=== PATIENT | male | born 1965 | race Asian ===

== ENCOUNTER → 2019-08-06 | Outpatient (CLI) | payer OTHER ==
[~2019-08-06] MED LIST: ESOM40CA PO; SERT25TA PO
[2019-08-06 16:21] LABS: MICROSCOPIC AUTO
[2019-08-06 16:21] LABS: BASOPHILS # (AUTO) 0.04 x10^3/uL (0-0.1); BASOPHILS % (AUTO) 1 % (0-1); EOSINOPHILS # (AUTO) 0.33 x10^3/uL (0-0.4); EOSINOPHILS % (AUTO) 5 % (1-7); LYMPHOCYTES # (AUTO) 1.89 x10^3/uL (1-3.4); LYMPHOCYTES % (AUTO) 29 % (22-44); MD NO; MEAN CORPUSCULAR HEMOGLOBIN 30.8 pg (27.5-34.5); MEAN CORPUSCULAR HGB CONC 33.7 g/dL (33.2-36.2); MEAN CORPUSCULAR VOLUME 91.5 fL (81-97); MEAN PLATELET VOLUME 7.9 fL (7.4-10.4); MONOCYTES # (AUTO) 0.45 x10^3/uL (0.2-0.8); MONOCYTES % (AUTO) 7 % (2-9); NEUTROPHILS # (AUTO) 3.71 x10^3/uL (1.8-6.8); NEUTROPHILS % (AUTO) 58 % (42-75); PLATELET COUNT 241 x10^3/uL (130-400); RED BLOOD COUNT 5.02 x10^6/uL (4.38-5.82)
[2019-08-06 16:27] LABS: CULTURE INDICATED? NO
[2019-08-06 16:28] LABS: INTERNATIONAL NORMALIZED RATIO 0.94 (0.93-1.1)
[2019-08-06 16:29] LABS: ANION GAP 6 mmol/L (5-15); CALCIUM 8.8 mg/dL (8.5-10.1); CHLORIDE 107 mmol/L (98-107); CREATININE 0.85 mg/dL (0.7-1.3)
== END | disposition home or self-care (01) ==
LOC: STAR 15:12
PROVIDERS: ATTEND Neurological Surgery
DX: Z01.818 Encounter for other preprocedural examination (principal); M50.30 Other cervical disc degeneration, unspecified cervical region
CPT/HCPCS: 36415; 71046; 80048; 81001; 85025; 85610; 85730; 93005

== ENCOUNTER 2019-08-21 05:20 | Observation (INO) | payer OTHER ==
[~2019-08-21] VITALS: Ht 167.6 cm; Wt 95.7 kg
[2019-08-21 06:18] VITALS: BP 130/90
[2019-08-21] MEDS ORDERED: LOSA50TA14 PO (06:22)
[2019-08-21] MEDS ORDERED: FLUT9.9S NAS (06:22)
[2019-08-21] MEDS ORDERED: LACTATED RINGERS 1,000 ML IV SCH (06:23)
[2019-08-21] MEDS ORDERED: LIDOCAINE-MPF 1%, 2ML ONE (06:25)
[2019-08-21] MEDS ORDERED: BACITRACIN 50,000 UNIT ONE (06:48)
[2019-08-21] MEDS ORDERED: EPINEPHRINE 1 MG/ML, 1ML ONE (06:48)
[2019-08-21] MEDS ORDERED: BUPIVACAINE/PF 0.5% ONE (06:48)
[2019-08-21] MEDS ORDERED: GABAPENTIN 300 MG CAPSULE PO ONE (07:00)
[2019-08-21] MEDS ORDERED: FAMOTIDINE 20 MG TABLET PO ONE (07:00)
[2019-08-21] MEDS ORDERED: ACETAMINOPHEN 500 MG TABLET PO ONE (07:00)
[2019-08-21] MEDS ORDERED: MIDAZOLAM 1 MG/ML, 2ML ONE (07:01)
[2019-08-21] MEDS ORDERED: FENTANYL PF 250 MCG/5ML ONE (07:02)
[2019-08-21] MEDS ORDERED: PROPOFOL 150 ML ONE (07:03)
[2019-08-21] MEDS ORDERED: ROCURONIUM 10MG/ML,5ML ONE (07:05)
[2019-08-21] MEDS ORDERED: PROPOFOL 10 MG/ML, 20ML ONE (07:06)
[2019-08-21] MEDS ORDERED: DEXAMETHASONE 4 MG/ML, 1ML ONE ×3 (07:33→07:35)
[2019-08-21] MEDS ORDERED: CEFAZOLIN 1,000 MG ONE ×2 (07:35)
[2019-08-21] MEDS ORDERED: LABETALOL 5MG/ML, 20ML IV PRN (08:00)
[2019-08-21] MEDS ORDERED: HYDROmorphone 2 MG/ML, 1ML IVPush PRN (08:00)
[2019-08-21] MEDS ORDERED: ONDANSETRON 2MG/ML, 2ML IV PRN (08:00)
[2019-08-21] MEDS ORDERED: hydrALAzine 20 MG/ML, 1ML IV PRN (08:00)
[2019-08-21] MEDS ORDERED: PROMETHAZINE 25 MG/ML, 1ML IV PRN (08:00)
[2019-08-21] MEDS ORDERED: FENTANYL PF 100 MCG/2ML IV PRN (08:00)
[2019-08-21] MEDS ORDERED: OXYcodone 5 MG/5 ML ORAL.SOL UDC PO PRN (08:00)
[2019-08-21] MEDS ORDERED: MEPERIDINE/PF 25MG/ML,1ML IVPush PRN (08:00)
[2019-08-21] MEDS ORDERED: ONDANSETRON 2MG/ML, 2ML ONE (08:50)
[2019-08-21] MEDS ORDERED: SENNA/DOCUSATE TABLET PO PRN (09:30)
[2019-08-21] MEDS ORDERED: METHOCARBAMOL 1,000 MG in DEXTROSE 5% 100 ML IV ONE (09:30)
[2019-08-21] MEDS ORDERED: ONDANSETRON 2MG/ML, 2ML IVPush PRN (09:30)
[2019-08-21] MEDS ORDERED: PROMETHAZINE 25 MG/ML, 1ML IM PRN (09:30)
[2019-08-21] MEDS: NS + 20MEQ KCL 1,000 ML IV SCH (09:30)
[2019-08-21] MEDS ORDERED: MAGNESIUM HYDROXIDE 8%, 30ML UDC PO PRN (09:30)
[2019-08-21] MEDS ORDERED: BISACODYL 10 MG SUPP PR PRN (09:30)
[2019-08-21] MEDS ORDERED: DIPHENHYDRAMINE 50 MG/ML, 1ML IVPush PRN (09:30)
[2019-08-21] MEDS ORDERED: HYDROmorphone 1 MG/ML, 1ML INJ IVPush PRN (09:30)
[2019-08-21] MEDS ORDERED: PHARMACY MAY ADJ FOR RENAL FX MC PRN (09:30)
[2019-08-21] MEDS ORDERED: SUCCINYLCHOLINE 20 MG/ML, 10ML ONE (15:23)
[2019-08-21 19:47] VITALS: BP 123/73
[2019-08-21] MEDS: OXYcodone/APAP 5/325MG TABLET PO PRN ×2 (19:49→20:25)
[2019-08-21] MEDS: CEFAZOLIN PMX 1GM/50ML 50 ML IVPB SCH (20:14)
[2019-08-21] MEDS: SODIUM CHLORIDE FLUSH 10ML SYR IVF SCH (21:00)
[2019-08-21] MEDS: PANTOPROZOLE 40MG TABLET PO SCH (22:19)
[2019-08-22] VITALS: BP 119/70
[2019-08-22] MEDS: OXYcodone/APAP 5/325MG TABLET PO PRN ×3 (00:55→08:45)
[2019-08-22] MEDS: NS + 20MEQ KCL 1,000 ML IV SCH (00:56)
[2019-08-22] MEDS: CEFAZOLIN PMX 1GM/50ML 50 ML IVPB SCH (04:31)
[2019-08-22 04:36] VITALS: BP 119/70
[2019-08-22 08:30] VITALS: BP 132/83
[2019-08-22] MEDS: PANTOPROZOLE 40MG TABLET PO SCH (08:44)
[2019-08-22] MEDS ORDERED: LOSARTAN 50MG TABLET PO SCH (09:00)
[2019-08-22] MEDS: SODIUM CHLORIDE FLUSH 10ML SYR IVF SCH (09:00)
[2019-08-22] MEDS ORDERED: SERTRALINE 50MG TABLET PO SCH (09:00)
[2019-08-23] MEDS ORDERED: METHOCARBAMOL 750 MG TABLET PO SCH (17:30)
== END 2019-08-22 10:55 | disposition home or self-care (01) ==
LOC: OUT 05:20 → ORIP 09:12 → 3WST 18:21 → DCLOUNGE 08-22 10:41
PROVIDERS: ADMIT Neurological Surgery; ATTEND Neurological Surgery
DX: M50.123 Cervical disc disorder at C6-C7 level with radiculopathy (principal); G47.30 Sleep apnea, unspecified; I10 Essential (primary) hypertension; Z79.899 Other long term (current) drug therapy
CPT/HCPCS: 20930; 22551; 22853; 72040; 95938; 95941; 96365; 96366; 97161; 97165; C1713; C1776; G0378; J0171; J0330; J0690; J1100; J1170; J2250; J2405; J2704; J2800; J3010; J3480; J3490; S0020

== ENCOUNTER 2020-03-03 19:19 | Emergency (ER) | payer OTHER ==
[~2020-03-03] VITALS: Ht 167.6 cm; Wt 88.7 kg
[~2020-03-03 19:19] MED LIST changes: +FLUT9.9S NAS; +LOSA50TA14 PO
[2020-03-03] MEDS ORDERED: LABETALOL 5MG/ML, 20ML IVPush STA (19:51)
[2020-03-03] MEDS ORDERED: SODIUM CHLORIDE FLUSH 10ML SYR IVF ONE (20:00)
[2020-03-03] MEDS ORDERED: LABETALOL 5MG/ML, 20ML ONE (20:05)
--- NOTE | 2020-03-03 20:22 | NUR ---
TASK RN: PT MEDICATED PER SEP, NAD, SITTING UP ON GURNEY, APPEARS COMFORTABLE, DENIES ADDITIONAL NEEDS AT THIS TIME, BLOOD SENT TO LAB. WCTM. PRIMARY RN AWARE.
[2020-03-03 20:32] LABS: BASOPHILS % (AUTO) 0 % (0-1); EOSINOPHILS % (AUTO) 0 % (1-7); LYMPHOCYTES # (AUTO) 0.42 x10^3/uL (1-3.4); LYMPHOCYTES % (AUTO) 8 % (22-44); MD NO; MEAN CORPUSCULAR HEMOGLOBIN 30.6 pg (27.5-34.5); MEAN CORPUSCULAR HGB CONC 33.5 g/dL (33.2-36.2); MEAN CORPUSCULAR VOLUME 91.4 fL (81-97); MEAN PLATELET VOLUME 8.1 fL (7.4-10.4); MONOCYTES # (AUTO) 0.01 x10^3/uL (0.2-0.8); MONOCYTES % (AUTO) 0 % (2-9); NEUTROPHILS # (AUTO) 4.55 x10^3/uL (1.8-6.8); NEUTROPHILS % (AUTO) 91 % (42-75); PLATELET COUNT 264 x10^3/uL (130-400); RED BLOOD COUNT 5.25 x10^6/uL (4.38-5.82); RED CELL DISTRIBUTION WIDTH 12.4 % (9.4-14.8)
[2020-03-03 20:42] LABS: ALBUMIN 4.2 g/dL (3.4-5.0); ANION GAP 7 mmol/L (5-15); CALCIUM 9.3 mg/dL (8.5-10.1); CHLORIDE 108 mmol/L (98-107)
[2020-03-03 22:04] VITALS: BP 143/91
--- NOTE | 2020-03-03 22:05 | NUR ---
Patient given discharge instructions and they have confirmed that they understand the instructions. Patient ambulatory with steady gait. DENIES ADDITIONAL QUESTIONS OR NEEDS AT THIS TIME. NAD, SKIN COLOR WNL WARM AND DRY. ALL QUESTIONS ANSWERED APPROPRIATELY. NO PT BELONGINGS LEFT IN ROOM AT ID.
== END 2020-03-03 22:08 | disposition home or self-care (01) ==
LOC: ED 21:30
DX: R73.9 Hyperglycemia, unspecified (principal); I10 Essential (primary) hypertension; R73.09 Other abnormal glucose; R00.0 Tachycardia, unspecified; I21.9 Acute myocardial infarction, unspecified
CPT/HCPCS: 36415; 80048; 82040; 85025; 93005; 96374; 99285